=== PATIENT | female | born 1950 | race Caucasian/White ===

== ENCOUNTER → 2016-06-13 | Outpatient (CLI) | payer MEDICARE ==
[~2016-06-13] MED LIST: OMEP40CA2 PO; SERT-141 PO; TRAM50TA2 PO
--- NOTE | 2016-06-13 10:42 | REPMRS ---
Patient History The patient states she has not had a clinical breast exam in over a year. Patient has history of cancer in the left breast at age 59 and is nulliparous. Family history of breast cancer in paternal grandmother at age 50 or over. Malignant localization of breast nodule of the left breast, March 02, 2010. Malignant stereotactic core biopsy of the left breast, February 01, 2010. Taking tamoxifen for 3 years. Digital Mammo Screening Bilat: June 13, 2016 - Exam #: [id number] Bilateral CC and MLO view(s) were taken. Technologist: Patricia Green, Technologist Prior study comparison: September 16, 2014, bilateral digital mammo screening bilat performed at [facility]. July 25, 2013, right breast digital mammo screening bilat performed at [facility]. FINDINGS: There are scattered fibroglandular densities. There has been no change in the appearance of the right breast parenchyma in the interval since the prior examination. No mass, architectural distortion, or microcalcific cluster has developed. No suspicious finding. ASSESSMENT: BI-RADS/ACR category 2 mammogram. Benign finding(s). Recommendation Routine screening mammogram in 1 year. This mammogram was interpreted with the aid of an FDA-approved computer-aided dectection system. Electronically Signed By: Nicolas Dwyer MD 06/13/16 1234
== END ==
LOC: M RAD 07:12
PROVIDERS: ATTEND Physician Assistant
DX: Z12.31 Encounter for screening mammogram for malignant neoplasm of breast (principal); Z92.89 Personal history of other medical treatment; Z85.3 Personal history of malignant neoplasm of breast; Z79.810 Long term (current) use of selective estrogen receptor modulators (SERMs)

== ENCOUNTER → 2016-06-13 | Outpatient (CLI) | payer MEDICARE ==
[2016-06-13 08:50] LABS: ALBUMIN/GLOBULIN RATIO 1.11 (1.00-1.93); ALKALINE PHOSPHATASE 123 U/L (45-117); ALT/SGPT 26 U/L (12-78); ANION GAP 12 MEQ/L (8-16); AST/SGOT 16 U/L (15-37); BILIRUBIN,TOTAL 0.3 MG/DL (0.2-1.0); BLOOD UREA NITROGEN 21 MG/DL (7-18); CALCIUM LEVEL 9.6 MG/DL (8.8-10.2); CARBON DIOXIDE LEVEL 26 MEQ/L (21-32); CHLORIDE LEVEL 103 MEQ/L (98-107); CREATININE FOR GFR 0.87 MG/DL (0.55-1.02); GLOMERULAR FILTRATION RATE > 60.0 (>45); GLUCOSE, FASTING 92 MG/DL (80-110); POTASSIUM SERUM 3.8 MEQ/L (3.5-5.1); SODIUM LEVEL 141 MEQ/L (136-145); TOTAL PROTEIN 7.6 GM/DL (6.4-8.2)
== END ==
LOC: M LAB 07:18
PROVIDERS: ATTEND Family Medicine
DX: Z12.31 Encounter for screening mammogram for malignant neoplasm of breast (principal); E11.65 Type 2 diabetes mellitus with hyperglycemia; Z92.89 Personal history of other medical treatment; Z85.3 Personal history of malignant neoplasm of breast
CPT/HCPCS: 36415; 80053; 82043; 83036; G0202

== ENCOUNTER → 2016-08-28 | Outpatient (CLI) | payer MEDICARE ==
[~2016-08-28] MED LIST changes: -SERT-141 PO; +SERT50TA PO
[2016-08-28 14:40] LABS: BASO # 0.1 K/mm3 (0.0-0.2); BASO % 0.5 % (0.0-1.0); EOS # 0.5 K/mm3 (0.0-0.50); EOS % 3.3 % (0.0-3.0); LARGE UNSTAINED CELL # 0.2 K/mm3 (0.0-0.4); LARGE UNSTAINED CELL % 1.2 % (0.0-4.0); LYMPH % 20.1 % (24.0-44.0); MEAN CORPUSCULAR HEMOGLOBIN 29.2 pg (27.0-33.0); MEAN CORPUSCULAR HGB CONC 33.7 g/dl (32.0-36.5); MEAN CORPUSCULAR VOLUME 86.6 fl (80.0-96.0); MONO # 0.6 K/mm3 (0.0-0.8); MONO % 4.4 % (0.0-5.0); NEUTROPHILS # 10.1 K/mm3 (1.8-7.7); NEUTROPHILS % 70.5 % (36.0-66.0); PLATELET COUNT, AUTOMATED 295 k/mm3 (150-450); RED CELL DISTRIBUTION WIDTH 13.8 % (11.5-14.5); WHITE BLOOD COUNT 14.2 K/mm3 (4.0-10.0)
--- NOTE | 2016-08-28 14:45 | REP ---
Soft-tissue ultrasound right lower extremity. History: Round nodular mobile lump in the medial portion of the right lower extremity. Nontender. Findings: Scanning through the palpable area located in the medial distal thigh shows that this corresponds with a dilated superficial vein. This displays relatively stagnant flow. The vessel does compress with manual compression. Impression: The area in the medial thigh corresponds to a superficial venous varicosity which is patent but showing slow Doppler flow. Signed by Suresh Dwyer MD 08/28/2016 03:18 P
[2016-08-28 15:02] LABS: ALBUMIN 3.8 GM/DL (3.2-5.2); ALBUMIN/GLOBULIN RATIO 1.06 (1.00-1.93); ALKALINE PHOSPHATASE 119 U/L (45-117); ALT/SGPT 34 U/L (12-78); ANION GAP 9 MEQ/L (8-16); AST/SGOT 16 U/L (15-37); BILIRUBIN,TOTAL 0.4 MG/DL (0.2-1.0); BLOOD UREA NITROGEN 24 MG/DL (7-18); CARBON DIOXIDE LEVEL 28 MEQ/L (21-32); CHLORIDE LEVEL 104 MEQ/L (98-107); CHOLESTEROL LEVEL 148 MG/DL (<200); CREATININE FOR GFR 0.97 MG/DL (0.55-1.02); GLOMERULAR FILTRATION RATE > 60.0 (>45); GLUCOSE, FASTING 109 MG/DL (80-110); POTASSIUM SERUM 4.2 MEQ/L (3.5-5.1); SODIUM LEVEL 141 MEQ/L (136-145); TOTAL PROTEIN 7.4 GM/DL (6.4-8.2); TRIGLYCERIDES LEVEL 287 MG/DL (<150)
== END ==
LOC: M RAD 13:29
PROVIDERS: ATTEND Family Medicine
DX: D49.2 Neoplasm of unspecified behavior of bone, soft tissue, and skin (principal); E11.65 Type 2 diabetes mellitus with hyperglycemia

== ENCOUNTER → 2016-10-13 | Outpatient (REF) | payer MEDICARE | LOC: M LAB REF 15:45 | PROVIDERS: ATTEND Family Medicine | DX: L57.0 Actinic keratosis (principal) ==

== ENCOUNTER → 2016-11-27 | Outpatient (CLI) | payer MEDICARE ==
[2016-11-27 16:50] LABS: ALBUMIN 3.8 GM/DL (3.2-5.2); ALBUMIN/GLOBULIN RATIO 1.03 (1.00-1.93); ALKALINE PHOSPHATASE 137 U/L (45-117); ALT/SGPT 30 U/L (12-78); ANION GAP 10 MEQ/L (8-16); AST/SGOT 19 U/L (15-37); BILIRUBIN,TOTAL 0.3 MG/DL (0.2-1.0); BLOOD UREA NITROGEN 20 MG/DL (7-18); CALCIUM LEVEL 9.1 MG/DL (8.8-10.2); CARBON DIOXIDE LEVEL 25 MEQ/L (21-32); CHLORIDE LEVEL 108 MEQ/L (98-107); GLOMERULAR FILTRATION RATE > 60.0 (>45); GLUCOSE, FASTING 104 MG/DL (80-110); POTASSIUM SERUM 4.9 MEQ/L (3.5-5.1); SODIUM LEVEL 143 MEQ/L (136-145); TOTAL PROTEIN 7.5 GM/DL (6.4-8.2)
--- NOTE | 2016-11-27 16:53 | REP ---
Left shoulder series: Three views. History: 1-month history of left shoulder pain. Findings: There are surgical clips projecting in the left axillary soft tissues. There is subcortical cyst formation in the humeral head. No erosive changes seen. Glenohumeral and acromioclavicular joints are normally aligned. There is minimal osteoarthritic spurring at the AC joint. Impression: Mild degenerative changes. Left axillary surgical clips. Otherwise negative. Signed by Suresh Dwyer MD 11/27/2016 05:01 P
== END ==
LOC: M LAB 15:35
PROVIDERS: ATTEND Physician Assistant Medical
DX: M25.512 Pain in left shoulder (principal); I10 Essential (primary) hypertension; E11.65 Type 2 diabetes mellitus with hyperglycemia

== ENCOUNTER → 2016-12-05 | Outpatient (CLI) | payer MEDICARE ==
--- NOTE | 2016-12-07 12:24 | DEXA ---
AP SPINE L1 - L4 1.042 -1.2 0.4 LT FEMUR TOTAL 0.859 -1.2 0.0 RT FEMUR TOTAL 0.835 -1.4 -0.2 TOTAL BODY TOTAL OTHER DUAL FEMUR FRAX* ASSESSMENT Risk factors: Not performed. 10 year probability of fracture Major osteoporotic fracture % Hip fracture % COMMENTS: There is low bone density of the spine and hips. The density of the spine has increased 6.2% since 01/05/2010. The density of the left hip has increased 6.4% since 01/05/2010. The density of the right hip has increased 4.2% since 01/05/2010. The increased density of the spine does represent a significant change. The increased density of the left hip does represent a significant change. The increased density of the right hip does represent a significant change. FOLLOW-UP: Recommendation for the next bone density exam: 2 years. WALKER
== END ==
LOC: M WHC 12:51
PROVIDERS: ATTEND Physician Assistant Medical
DX: M25.512 Pain in left shoulder (principal); Z78.0 Asymptomatic menopausal state

== ENCOUNTER 2017-12-13 14:44 | Emergency (ER) | payer MEDICARE ==
[2017-12-13 15:14] LABS: BASO # 0.1 10^3/uL (0.0-0.2); BASO % 0.3 % (0.0-1.0); EOS # 0.4 10^3/uL (0.0-0.50); EOS % 2.9 % (0.0-3.0); HEMATOCRIT 42.8 % (36.0-47.0); IMMATURE GRANULOCYTE % 0.5 % (0-3.0); LYMPH # 3.5 10^3/uL (1.5-4.5); LYMPH % 23.6 % (24.0-44.0); MEAN CORPUSCULAR HEMOGLOBIN 27.6 pg (27.0-33.0); MEAN CORPUSCULAR HGB CONC 32.7 g/dl (32.0-36.5); MEAN CORPUSCULAR VOLUME 84.3 fl (80.0-96.0); MONO % 6.6 % (0.0-5.0); NEUTROPHILS # 9.9 10^3/uL (1.8-7.7); NEUTROPHILS % 66.1 % (36.0-66.0); PLATELET COUNT, AUTOMATED 312 10^3/uL (150-450); RED BLOOD COUNT 5.08 10^6/uL (4.00-5.40); RED CELL DISTRIBUTION WIDTH 14.7 % (11.5-14.5)
[2017-12-13] MEDS: NS 1,000 ML IV (15:23)
[2017-12-13 15:28] LABS: INR 0.94; PROTHROMBIN TIME 12.7 SECONDS (12.1-14.4)
[2017-12-13] MEDS ORDERED: NITROGLYCERIN 0.4 MG SUBL TABLET SL (15:30)
[2017-12-13 15:36] LABS: ALBUMIN 3.7 GM/DL (3.2-5.2); ALBUMIN/GLOBULIN RATIO 0.95 (1.00-1.93); ALKALINE PHOSPHATASE 143 U/L (45-117); ALT/SGPT 28 U/L (12-78); ANION GAP 12 MEQ/L (8-16); AST/SGOT 13 U/L (7-37); BILIRUBIN,DIRECT < 0.1 MG/DL (0.0-0.2); BILIRUBIN,TOTAL 0.4 MG/DL (0.2-1.0); BLOOD UREA NITROGEN 17 MG/DL (7-18); CARBON DIOXIDE LEVEL 24 MEQ/L (21-32); CHLORIDE LEVEL 105 MEQ/L (98-107); CPK CREATINE PHOSPHOKINASE 205 U/L (26-192); CREATININE FOR GFR 0.87 MG/DL (0.55-1.30); GLOMERULAR FILTRATION RATE > 60.0 (>45); GLUCOSE, FASTING 107 MG/DL (70-100); LIPASE 197 U/L (73-393); POTASSIUM SERUM 3.5 MEQ/L (3.5-5.1); SODIUM LEVEL 141 MEQ/L (136-145); TOTAL PROTEIN 7.6 GM/DL (6.4-8.2); TROPONIN I < 0.02 NG/ML (< 0.10)
[2017-12-13 15:37] LABS: CK-MB VALUE MASS 3.4 NG/ML (<3.6); MB/CK RELATIVE INDEX 1.65 (< OR =4)
[2017-12-13 19:52] LABS: CK-MB VALUE MASS 2.5 NG/ML (<3.6); CPK CREATINE PHOSPHOKINASE 211 U/L (26-192); MB/CK RELATIVE INDEX 1.18 (< OR =4); TROPONIN I < 0.02 NG/ML (< 0.10)
== END 2017-12-13 20:20 | disposition home or self-care (01) ==
LOC: M ED 14:44
DX: R07.89 Other chest pain (principal); E11.9 Type 2 diabetes mellitus without complications; J45.909 Unspecified asthma, uncomplicated; I10 Essential (primary) hypertension; E78.5 Hyperlipidemia, unspecified; K21.9 Gastro-esophageal reflux disease without esophagitis; G89.29 Other chronic pain; I25.10 Atherosclerotic heart disease of native coronary artery without angina pectoris; Z82.49 Family history of ischemic heart disease and other diseases of the circulatory system; Z79.899 Other long term (current) drug therapy; Z79.82 Long term (current) use of aspirin; Z79.84 Long term (current) use of oral hypoglycemic drugs; Z88.8 Allergy status to other drugs, medicaments and biological substances; F17.210 Nicotine dependence, cigarettes, uncomplicated
CPT/HCPCS: 71045

== ENCOUNTER → 2018-01-22 | Outpatient (CLI) | payer MEDICARE | LOC: M RAD 13:21 | DX: Z12.2 Encounter for screening for malignant neoplasm of respiratory organs (principal); F17.218 Nicotine dependence, cigarettes, with other nicotine-induced disorders | CPT/HCPCS: G0297 ==

== ENCOUNTER 2018-02-04 09:48 | Day surgery (SDC) | payer MEDICARE ==
[~2018-02-04 09:48] MED LIST changes: +MIDAZOLAM INJ 2 MG/2 ML VIAL (J2250) As Ordered; -OMEP40CA2 PO; -SERT50TA PO; -TRAM50TA2 PO; +fentaNYL 100 MCG/2 ML INJECTION (J3010) As Ordered
[2018-02-04 10:46] LABS: BEDSIDE GLUCOSE 137 MG/DL (80-115)
[2018-02-04] MEDS: LIDOCAINE 3.5 % 1ML OPHTH TOPICAL GEL OU (10:58)
[2018-02-04] MEDS: POVIDONE-IODINE 5% OPHTH PREP SOL 30ML As Ordered (12:05)
[2018-02-04] MEDS: LIDOCAINE 2% W/EPIN INJ 20ML **PRES FREE As Ordered (12:05)
[2018-02-04] MEDS ORDERED: fentaNYL 100 MCG/2 ML INJECTION (J3010) As Ordered (12:23)
[2018-02-04] MEDS ORDERED: PROPOFOL 200 MG/20 ML VIAL As Ordered (12:27)
[2018-02-04] MEDS: ERYTHROMYCIN OPHTH OINT As Ordered (12:51)
[2018-02-04] MEDS: TETRACAINE 0.5% OPHTH SOLN 4ML As Ordered (12:53)
== END 2018-02-04 13:40 | disposition home or self-care (01) ==
LOC: M SDC 09:48
DX: H02.834 Dermatochalasis of left upper eyelid (principal); H02.831 Dermatochalasis of right upper eyelid; H01.001 Unspecified blepharitis right upper eyelid; H01.004 Unspecified blepharitis left upper eyelid; I50.32 Chronic diastolic (congestive) heart failure; I11.0 Hypertensive heart disease with heart failure; E78.00 Pure hypercholesterolemia, unspecified; E11.9 Type 2 diabetes mellitus without complications; M12.9 Arthropathy, unspecified; L98.8 Other specified disorders of the skin and subcutaneous tissue; F32.9 Major depressive disorder, single episode, unspecified; G43.909 Migraine, unspecified, not intractable, without status migrainosus; G40.909 Epilepsy, unspecified, not intractable, without status epilepticus; J44.9 Chronic obstructive pulmonary disease, unspecified; G47.33 Obstructive sleep apnea (adult) (pediatric); F17.210 Nicotine dependence, cigarettes, uncomplicated; R07.9 Chest pain, unspecified; E66.9 Obesity, unspecified; Z68.37 Body mass index [BMI] 37.0-37.9, adult; Z88.8 Allergy status to other drugs, medicaments and biological substances; Z91.09 Other allergy status, other than to drugs and biological substances; Z79.899 Other long term (current) drug therapy; Z79.82 Long term (current) use of aspirin; Z79.84 Long term (current) use of oral hypoglycemic drugs; Z90.710 Acquired absence of both cervix and uterus; Z85.3 Personal history of malignant neoplasm of breast; Z92.21 Personal history of antineoplastic chemotherapy; Z92.3 Personal history of irradiation
CPT/HCPCS: 15823

== ENCOUNTER → 2018-04-05 | Outpatient (CLI) | payer MEDICARE ==
[~2018-04-05] MED LIST changes: +ADVA115A INH; +ASPI1TAB PO; +ATOR1TAB21 PO; +CITRSOL8 PO; +COLA100C5 PO; +E-Z-GAS II EFFERVESCENT PACKET (SODIUM BICARB./CITRIC ACID/SIMETHICONE) As Ordered ONE; +E-Z-HD 98% w/w 340GM SUSP BTL As Ordered ONE; +E-Z-PAQUE 96% w/w SUSP 176GM BTL As Ordered ONE; +FURO40TA2 PO; +LOSA100T50 PO; +METF10004 PO; -MIDAZOLAM INJ 2 MG/2 ML VIAL (J2250) As Ordered; +NORC1TAB4 PO; +OMEP20CA3 PO; +OMEP40CA2 PO; +PROAAER10 INH; +SENO8.6T10 PO; +SERT50TA PO; +TRAM50TA2 PO; -fentaNYL 100 MCG/2 ML INJECTION (J3010) As Ordered
--- NOTE | 2018-04-05 17:13 | REP ---
Esophagram The procedure was performed under the direct supervision of Dr. Dwyer. The images were reviewed with Dr. Dwyer. A single view PA chest x-ray is submitted as a obstetrics gynecology physician film. The superior mediastinal structures are midline. The heart size is within normal limits. The lungs are clear. There are surgical clips noted in the left axilla and left chest. Liquid barium and gas producing granules were given in the erect position as well as liquid barium in the prone oblique positions in order to perform a double contrast esophagram examination. The oral and pharyngeal stages of deglutition are unremarkable. There are esophageal transport there are mild tertiary waves. There is no esophagitis, stricture, mucosal ring or hiatal hernia. Gastroesophageal reflux is not demonstrated on this examination. Impression: There are mild tertiary waves demonstrated, otherwise, unremarkable double contrast esophagram examination. 0.8 minutes of fluoro time was utilized for this procedure. Reviewed by PALAK Angeles 04/05/2018 04:45 P Electronically Signed by Suresh Dwyer MD 04/05/2018 05:04 P
== END ==
LOC: M RAD 09:22
PROVIDERS: ATTEND Nurse Practitioner Adult Health
DX: K21.9 Gastro-esophageal reflux disease without esophagitis (principal)

== ENCOUNTER → 2018-06-28 | Outpatient (CLI) | payer MEDICARE ==
[~2018-06-28] MED LIST changes: -E-Z-GAS II EFFERVESCENT PACKET (SODIUM BICARB./CITRIC ACID/SIMETHICONE) As Ordered ONE; -E-Z-HD 98% w/w 340GM SUSP BTL As Ordered ONE; -E-Z-PAQUE 96% w/w SUSP 176GM BTL As Ordered ONE
--- NOTE | 2018-06-29 07:35 | REP ---
DIAGNOSTIC DIGITAL RIGHT MAMMOGRAM: 06/28/2018. CLINICAL HISTORY: Right breast pain in the 3-4-o'clock region and also another area of pain at 12-o'clock position. COMPARISON: Breast ultrasound in these regions today, right mammogram 06/13/2016, 09/16/2014. FINDINGS: There are heterogeneously dense fibroglandular elements scattered in the breast parenchyma in a pattern and distribution unchanged. Large coarse calcifications are present, of no clinical significance. Scattered lymph nodes are seen in the axilla. There is a benign intramammary node in the upper outer quadrant of the right breast. No dominant mass, architectural distortion, skin thickening, suspicious cluster of microcalcification or other secondary sign of malignancy. The 3D tomosynthesis images show no additional findings. Right breast ultrasound in the two areas of her breast pain described today showed no sonographic abnormalities at the 3-4 o'clock region but with a dense echogenic tissue band at the noon position and a 3 x 2 x 3 mm cyst with adjacent dilated ducts noted. No filling defects in those ducts. Also at the noon position about 2.7 cm from the nipple is a 5 x 5 x 4 mm hypoechoic lesion but there is mild shadowing, no through transmission. There is no color flow within and the internal echoes are fairly hypoechoic IMPRESSION: BIRADS 4: BI-RADS/ACR category 4 mammogram. Suspicious Abnormality - biopsy should be considered. Recommend ultrasound-guided needle biopsy of a 5 x 5 x 4 mm hypoechoic nodule at the noon position right breast about 2.7 cm from nipple. Does not have characteristics that would clearly define a fibroadenoma or other readily definable sonographic features. Biopsy suggested. This mammogram was interpreted with the aid of an FDA-approved computer-aided detection system. A. Negative x-ray reports should not delay biopsy if a dominant or clinically suspicious mass is present. B. Four to eight percent of cancers are not identified by x-ray. C. Adenosis and dense breasts may obscure an underlying neoplasm. The patient states that she or he has not had a clinical breast exam in over a year. The patient letter being requested is M4, dense. Electronically Signed by Dread Mendoza MD 06/29/2018 12:04 P
--- NOTE | 2018-06-29 07:35 | REP ---
RIGHT BREAST ULTRASOUND: 06/28/2018. Clinical history: Right breast pain in a patient with prior left mastectomy. Comparison: Diagnostic right mammogram today Findings: Scanning of the right breast in the region of her pain at 3-4 o'clock area. At the 3-4 o'clock region there was no sonographic abnormality visualized. No cyst or solid mass, architectural distortion or dilated duct. At the noon position there was an echogenic dense band of tissue seen with a 3 x 3 x 2 mm cyst adjacent to a dilated duct. No internal echoes or debris. Also at 12 o'clock, about 2.7 cm from nipple there was a 5 x 5 x 4 mm hypoechoic area sharply circumscribed with internal echoes and some shadowing. This may reflect oil cysts or other similar finding. There was no color flow within it. Impression: 1. BIRADS ACR category 4 suspicious, suspicious finding with 5 x 5 x 4 mm hypoechoic area at the noon position left breast away for her area of pain. This has internal echoes, no color flow, but does not show through transmission and has some shadowing. 2. At the 3-4 o'clock position in the area of her pain there were no sonographic findings. 3. A 3 x 3 x 2 mm cyst in adjacent dilated duct seen at the noon position without internal echoes or filling defects. 4. Please see mammogram report this date for final assessment and recommendation. Electronically Signed by Dread Mendoza MD 06/29/2018 12:03 P
== END ==
LOC: M RAD 11:49
PROVIDERS: ATTEND Nurse Practitioner Adult Health
DX: N64.4 Mastodynia (principal); R92.1 Mammographic calcification found on diagnostic imaging of breast; N63.10 Unspecified lump in the right breast, unspecified quadrant
CPT/HCPCS: 76642; 77065; G0279

== ENCOUNTER → 2018-07-10 | Outpatient (CLI) | payer MEDICARE ==
[~2018-07-10] MED LIST changes: -ASPI1TAB PO; +ASPI81TA26 PO; +LIDOCAINE 1% MDV 20ML VIAL As Ordered ONE; -NORC1TAB4 PO; +NORC1TAB7 PO; +SERT-141 PO; -SERT50TA PO
--- NOTE | 2018-07-10 14:05 | REP ---
POST BIOPSY MAMMOGRAM RIGHT BREAST: Post biopsy mammogram right breast performed in the ML and CC projections, status post ultrasound-guided biopsy of a subcentimeter nodule in the region of 12-o'clock position. A metallic clip is seen at the site of the biopsy in the region of 12-o'clock position anteriorly. Right breast parenchyma appears unchanged. Electronically Signed by Jesse Macias MD 07/10/2018 04:55 P
--- NOTE | 2018-07-10 16:59 | REP ---
ULTRASOUND GUIDED RIGHT BREAST BIOPSY The procedure was performed under the direct supervision of Dr. Macias The patient has a history of 5 x 5 x 4 mm hypoechoic area in the position of the right breast seen on a previous ultrasound dated 06/28/2018. The risks and benefits of the procedure were explained to the patient and informed consent was obtained. The right breast nodule was localized using ultrasound guidance. The skin was prepped and draped in a sterile fashion. 1% Xylocaine was used as a local anesthetic. Using ultrasound guidance a 13-gauge suction assisted Mammotome needle was inserted and five core biopsy samples were obtained. A marker clip was placed at the biopsy site. The patient tolerated the procedure well and there were no immediate complications. After the appropriate amount of monitored convalescence the patient was discharged from the department. Reviewed by PALAK Angeles 07/10/2018 03:40 P Electronically Signed by Jesse Macias MD 07/10/2018 04:50 P
== END ==
LOC: M RADPRO 11:34
PROVIDERS: ATTEND Nurse Practitioner Adult Health
DX: N60.11 Diffuse cystic mastopathy of right breast (principal); N63.11 Unspecified lump in the right breast, upper outer quadrant; N63.12 Unspecified lump in the right breast, upper inner quadrant; N64.4 Mastodynia; I11.0 Hypertensive heart disease with heart failure; J44.9 Chronic obstructive pulmonary disease, unspecified; F17.210 Nicotine dependence, cigarettes, uncomplicated; E11.9 Type 2 diabetes mellitus without complications; Z79.84 Long term (current) use of oral hypoglycemic drugs; Z79.899 Other long term (current) drug therapy

== ENCOUNTER 2018-12-23 15:42 | Emergency (ER) | payer MEDICARE ==
[~2018-12-23] VITALS: Ht 160 cm; Wt 94.5 kg
[~2018-12-23 15:42] MED LIST changes: -LIDOCAINE 1% MDV 20ML VIAL As Ordered ONE; +OMEP1CAP73 PO; -OMEP20CA3 PO; -OMEP40CA2 PO; +OMEP40CA97 PO
[2018-12-23] MEDS ORDERED: EZET10TA21 PO (16:07)
[2018-12-23 16:30] LABS: BASO # 0.1 10^3/uL (0.0-0.2); BASO % 0.5 % (0.0-1.0); EOS # 0.4 10^3/uL (0.0-0.5); EOS % 3.2 % (0.0-3.0); HEMATOCRIT 40.7 % (36.0-47.0); HEMOGLOBIN 13.4 g/dl (12.0-15.5); LYMPH # 3.1 10^3/uL (1.5-5.0); LYMPH % 23.8 % (24.0-44.0); MEAN CORPUSCULAR HEMOGLOBIN 27.6 pg (27.0-33.0); MEAN CORPUSCULAR HGB CONC 32.9 g/dl (32.0-36.5); MEAN CORPUSCULAR VOLUME 83.7 fl (80.0-96.0); MONO # 0.8 10^3/uL (0.0-0.8); MONO % 6.1 % (0.0-5.0); NEUTROPHILS # 8.5 10^3/uL (1.5-8.5); NEUTROPHILS % 65.8 % (36.0-66.0); PLATELET COUNT, AUTOMATED 312 10^3/uL (150-450); RED BLOOD COUNT 4.86 10^6/uL (4.00-5.40); WHITE BLOOD COUNT 12.9 10^3/uL (4.0-10.0)
[2018-12-23 16:52] LABS: ALBUMIN 3.8 GM/DL (3.2-5.2); ALT/SGPT 30 U/L (12-78); BILIRUBIN,DIRECT < 0.1 MG/DL (0.0-0.2); BILIRUBIN,TOTAL 0.2 MG/DL (0.2-1.0); CK-MB VALUE MASS 2.5 NG/ML (<3.6); CPK CREATINE PHOSPHOKINASE 166 U/L (26-192); LIPASE 160 U/L (73-393); MB/CK RELATIVE INDEX 1.51 (< OR =4); TOTAL PROTEIN 7.4 GM/DL (6.4-8.2); TROPONIN I < 0.02 NG/ML (< 0.10)
--- NOTE | 2018-12-23 17:23 | REP ---
CHEST: Two views. There is no evidence of acute infiltrate. No pleural effusion is seen. The heart is normal in size. The mediastinal silhouette is unremarkable. The visualized osseous structures are intact. There are mild degenerative changes of the spine. IMPRESSION: No acute pulmonary disease. Electronically Signed by Jesse Macias MD 12/25/2018 09:55 A
[2018-12-23] MEDS ORDERED: IPRATROPIUM 0.5MG/ALBUTEROL 2.5MG INH SOL UD 3ML (DUONEB)(J7620) NEB ONE (17:30)
[2018-12-23 17:43] LABS: FREE T4 0.78 NG/DL (0.76-1.46)
[2018-12-23 17:44] LABS: MONO SCRN NEGATIVE (NEGATIVE)
[2018-12-23] MEDS ORDERED: BENZ200C70 PO (17:51)
[2018-12-23] MEDS ORDERED: AUGM875T28 PO (17:51)
[2018-12-23 18:04] VITALS: BP 149/67
--- NOTE | 2018-12-24 19:18 | ECGEPIP ---
[facility] - ED Test Date: 2018-12-23 Pat Name: PRASHANT RINCON Department: Room: - Gender: Female [employer]: BALJINDER : 1950 Requested By: BENJI ROSS PA-C Order Number: [id number] Reading MD: Elmer Marquez Measurements Intervals [facility] Rate: 85 P: 60 FL: 152 QRS: 34 QRSD: 85 T: 16 QT: 362 QTc: 432 Interpretive Statements SINUS RHYTHM WITH SINUS ARRHYTHMIA NSTTW ABNORMALITIES SIMILAR TO 12/13/17 Electronically Signed on 12-24-2018 19:18:26 EDT by Elmer Marquez
== END 2018-12-23 18:16 | disposition home or self-care (01) ==
LOC: M ED 15:42
DX: J44.0 Chronic obstructive pulmonary disease with (acute) lower respiratory infection (principal); R07.89 Other chest pain; I10 Essential (primary) hypertension; E78.5 Hyperlipidemia, unspecified; G47.30 Sleep apnea, unspecified; K21.9 Gastro-esophageal reflux disease without esophagitis; M54.89 Other dorsalgia; G43.909 Migraine, unspecified, not intractable, without status migrainosus; Z88.8 Allergy status to other drugs, medicaments and biological substances; Z79.82 Long term (current) use of aspirin; Z79.899 Other long term (current) drug therapy

== ENCOUNTER → 2019-06-06 | Outpatient (CLI) | payer MEDICARE ==
[~2019-06-06] MED LIST changes: +AUGM875T28 PO; +BENZ200C70 PO; +EZET10TA21 PO
--- NOTE | 2019-06-06 13:47 | REP ---
Clinical: Lung screening. History smoking. Comparison: 01/22/2018 Technique: Axial low-dose noncontrast images from the thoracic inlet to the upper abdomen using lung screening technique. Findings: The lung white are well-aerated. No consolidation, significant nodule or mass lesion is appreciated. Few small scattered calcified granulomata again noted. No pleural effusion/reaction or pneumothorax. Tracheobronchial tree is patent. Mediastinum demonstrates mild atherosclerotic changes of the coronary arteries without cardiomegaly. Impression: Lung-RADS category I. No significant nodule or suspicious abnormality. Management recommendations include annual low-dose surveillance. Electronically Signed by Chinedu Mondragon MD 06/06/2019 01:39 P
== END ==
LOC: M RAD 13:06
PROVIDERS: ATTEND Internal Medicine Pulmonary Disease
DX: Z87.891 Personal history of nicotine dependence (principal)

== ENCOUNTER 2019-07-07 22:20 | Emergency (ER) | payer MEDICARE ==
[~2019-07-07] VITALS: Ht 157.5 cm; Wt 96.8 kg
[2019-07-07] MEDS ORDERED: MECLIZINE 25 MG TABLET PO ONE (23:00)
[2019-07-07] MEDS ORDERED: NS 1,000 ML IV ONE (23:00)
[2019-07-07] MEDS ORDERED: ONDANSETRON 4MG/2ML VIAL (J2405) IV ONE (23:00)
[2019-07-07 23:42] LABS: BASO # 0.1 10^3/uL (0.0-0.2); BASO % 0.5 % (0.0-1.0); EOS # 0.4 10^3/uL (0.0-0.5); EOS % 2.9 % (0.0-3.0); HEMATOCRIT 38.9 % (36.0-47.0); HEMOGLOBIN 12.4 g/dl (12.0-15.5); LYMPH # 2.8 10^3/uL (1.5-5.0); MEAN CORPUSCULAR HEMOGLOBIN 26.6 pg (27.0-33.0); MEAN CORPUSCULAR HGB CONC 31.9 g/dl (32.0-36.5); MEAN CORPUSCULAR VOLUME 83.5 fl (80.0-96.0); MONO # 0.7 10^3/uL (0.0-0.8); NEUTROPHILS # 8.1 10^3/uL (1.5-8.5); NEUTROPHILS % 66.9 % (36.0-66.0); PLATELET COUNT, AUTOMATED 300 10^3/uL (150-450); RED BLOOD COUNT 4.66 10^6/uL (4.00-5.40); WHITE BLOOD COUNT 12.1 10^3/uL (4.0-10.0)
[2019-07-08 00:10] LABS: ALBUMIN 3.6 GM/DL (3.2-5.2); ALT/SGPT 31 U/L (12-78); BILIRUBIN,DIRECT < 0.1 MG/DL (0.0-0.2); BILIRUBIN,TOTAL 0.3 MG/DL (0.2-1.0); CK-MB VALUE MASS 3.7 NG/ML (<3.6); CPK CREATINE PHOSPHOKINASE 283 U/L (26-192); LIPASE 236 U/L (73-393); MB/CK RELATIVE INDEX 1.31 (< OR =4); TOTAL PROTEIN 7.4 GM/DL (6.4-8.2); TROPONIN I < 0.02 NG/ML (< 0.10)
[2019-07-08] MEDS ORDERED: KETOROLAC 30 MG/ML VIAL (J1885) IV ONE (00:30)
[2019-07-08 01:16] VITALS: BP 157/69
[2019-07-08] MEDS ORDERED: ONDA4TAB6 PO (01:29)
[2019-07-08] MEDS ORDERED: MECL1TAB31 PO (01:29)
== END 2019-07-08 01:49 | disposition home or self-care (01) ==
LOC: M ED 22:20
DX: K52.9 Noninfective gastroenteritis and colitis, unspecified (principal); E11.9 Type 2 diabetes mellitus without complications; F17.200 Nicotine dependence, unspecified, uncomplicated; J30.2 Other seasonal allergic rhinitis; Z79.82 Long term (current) use of aspirin; Z79.84 Long term (current) use of oral hypoglycemic drugs; Z79.899 Other long term (current) drug therapy; Z88.5 Allergy status to narcotic agent
CPT/HCPCS: 80047; 80076; 82550; 82553; 83690; 84484; 85025; 93041; 96361; 96374; 96375; 99285; J1885; J2405

== ENCOUNTER 2019-12-01 21:20 | Emergency (ER) | payer MEDICARE ==
[~2019-12-01 21:20] MED LIST changes: +FLECAINIDE 50MG TABLET As Ordered ONE; +MECL1TAB31 PO; +METOPROLOL TART 25 MG TABLET As Ordered ONE; +METOPROLOL TART 25 MG TABLET ONE; +ONDA4TAB6 PO
[2020-01-14 16:17] LABS: BASO % 0.3 % (0.0-1.0); EOS # 0.2 10^3/uL (0.0-0.5); EOS % 1.1 % (0.0-3.0); HEMATOCRIT 40.1 % (36.0-47.0); HEMOGLOBIN 12.9 g/dl (12.0-15.5); LYMPH # 1.7 10^3/uL (1.5-5.0); MEAN CORPUSCULAR HGB CONC 32.2 g/dl (32.0-36.5); MEAN CORPUSCULAR VOLUME 83.9 fl (80.0-96.0); MONO # 0.6 10^3/uL (0.0-0.8); MONO % 4.3 % (0.0-5.0); NEUTROPHILS # 10.6 10^3/uL (1.5-8.5); NEUTROPHILS % 80.7 % (36.0-66.0); PLATELET COUNT, AUTOMATED 267 10^3/uL (150-450); RED BLOOD COUNT 4.78 10^6/uL (4.00-5.40); WHITE BLOOD COUNT 13.1 10^3/uL (4.0-10.0)
[2020-02-22 16:16] LABS: BLOOD UREA NITROGEN 16 MG/DL (7-18); CALCIUM LEVEL 8.7 MG/DL (8.8-10.2); CARBON DIOXIDE LEVEL 25 MEQ/L (21-32); CHLORIDE LEVEL 106 MEQ/L (98-107); CREATININE FOR GFR 0.77 MG/DL (0.55-1.30); FREE T4 0.83 NG/DL (0.76-1.46); GLOMERULAR FILTRATION RATE > 60.0 (>45); GLUCOSE, FASTING 131 MG/DL (70-100); POTASSIUM SERUM 3.9 MEQ/L (3.5-5.1); SODIUM LEVEL 140 MEQ/L (136-145)
== END 2019-12-01 22:25 | disposition home or self-care (01) ==
LOC: M ED 21:20
DX: I48.0 Paroxysmal atrial fibrillation (principal); E11.9 Type 2 diabetes mellitus without complications; I10 Essential (primary) hypertension; I51.9 Heart disease, unspecified; K21.9 Gastro-esophageal reflux disease without esophagitis; F17.200 Nicotine dependence, unspecified, uncomplicated; Z79.84 Long term (current) use of oral hypoglycemic drugs; Z79.82 Long term (current) use of aspirin; Z79.899 Other long term (current) drug therapy; Z88.8 Allergy status to other drugs, medicaments and biological substances

== ENCOUNTER 2019-12-08 03:17 | Emergency (ER) | payer MEDICARE ==
[~2019-12-08] VITALS: Ht 160 cm; Wt 94.5 kg
[~2019-12-08 03:17] MED LIST changes: -FLECAINIDE 50MG TABLET As Ordered ONE; -METOPROLOL TART 25 MG TABLET As Ordered ONE; -METOPROLOL TART 25 MG TABLET ONE
[2019-12-08 06:15] VITALS: BP 147/65
[2019-12-09] MEDS ORDERED: ONDA4TAB6 PO (20:22)
== END 2019-12-08 06:42 | disposition home or self-care (01) ==
LOC: M ED 03:17
DX: R42 Dizziness and giddiness (principal); I48.91 Unspecified atrial fibrillation; E11.9 Type 2 diabetes mellitus without complications; I10 Essential (primary) hypertension; E78.5 Hyperlipidemia, unspecified; J44.9 Chronic obstructive pulmonary disease, unspecified; K21.9 Gastro-esophageal reflux disease without esophagitis; F41.9 Anxiety disorder, unspecified; F17.200 Nicotine dependence, unspecified, uncomplicated; Z88.8 Allergy status to other drugs, medicaments and biological substances; J30.1 Allergic rhinitis due to pollen; Z79.899 Other long term (current) drug therapy; Z79.84 Long term (current) use of oral hypoglycemic drugs; Z79.82 Long term (current) use of aspirin; Z79.51 Long term (current) use of inhaled steroids

== ENCOUNTER 2019-12-09 10:55 | Emergency (ER) | payer MEDICARE ==
[~2019-12-09] VITALS: Ht 162.6 cm; Wt 94.5 kg
--- NOTE | 2019-12-09 12:06 | REPVR ---
PROCEDURE INFORMATION: Exam: XR Chest, 1 View Exam date and time: 12/09/2019 11:50 AM Age: 69 years old Clinical indication: Shortness of breath; Additional info: Chest pain TECHNIQUE: Imaging protocol: XR of the chest Views: Frontal portable sitting upright view of the chest. COMPARISON: CR Chest, 2 view PA, Lat 12/23/2018 4:25 PM FINDINGS: Tubes, catheters and devices: EKG leads are present overlying the chest. Lungs: Mild right basilar pulmonary subsegmental atelectasis. The lungs are otherwise clear bilaterally. The pulmonary vasculature is normal. Pleural space: No pleural effusion. No pneumothorax. Heart/Mediastinum: The heart is normal in size and contour. Mediastinum: Stable. Bones/joints: Stable. IMPRESSION: 1. Mild right basilar pulmonary subsegmental atelectasis. 2. Otherwise, no acute cardiopulmonary abnormality identified. Electronically signed by: Bandar Schuler On 12/09/2019 12:07:01 PM
--- NOTE | 2019-12-09 12:28 | REPVR ---
PROCEDURE INFORMATION: Exam: CT Head Without Contrast Exam date and time: 12/09/2019 12:05 PM Age: 69 years old Clinical indication: Injury or trauma; Fall; Initial encounter; Blunt trauma (contusions or hematomas); Additional info: Headahce and neck pain TECHNIQUE: Imaging protocol: Computed tomography of the head without contrast. Radiation optimization: All CT scans at this facility use at least one of these dose optimization techniques: automated exposure control; mA and/or kV adjustment per patient size (includes targeted exams where dose is matched to clinical indication); or iterative reconstruction. COMPARISON: CT Head without contrast 12/27/2014 10:53 PM FINDINGS: Brain: Normal. No hemorrhage. Unremarkable white matter. No mass effect. Ventricles: Normal. No ventriculomegaly. Bones/joints: Unremarkable. No acute fracture. Sinuses: Visualized sinuses are unremarkable. No fluid levels. Mastoid air cells: Visualized mastoid air cells are well aerated. Vasculature: Atherosclerotic calcifications are present involving the left carotid artery siphon. Soft tissues: Unremarkable. IMPRESSION: No acute intracranial injury. Electronically signed by: Bandar Schuler On 12/09/2019 12:29:11 PM
--- NOTE | 2019-12-09 12:32 | REPVR ---
PROCEDURE INFORMATION: Exam: CT Cervical Spine Without Contrast Exam date and time: 12/09/2019 12:05 PM Age: 69 years old Clinical indication: Injury or trauma; Fall; Initial encounter; Blunt trauma; Additional info: Headahce and neck pain TECHNIQUE: Imaging protocol: Computed tomography images of the cervical spine without contrast. Radiation optimization: All CT scans at this facility use at least one of these dose optimization techniques: automated exposure control; mA and/or kV adjustment per patient size (includes targeted exams where dose is matched to clinical indication); or iterative reconstruction. COMPARISON: No relevant prior studies available. FINDINGS: Vertebrae: Anterior cervical vertebral body marginal osteophytes from C3 through T2 C3 on C4 anterolisthesis measuring 2.9 mm in the supine position. Mild-moderate C6-C7 spondylosis. Discs/Spinal canal/Neural foramina: Mild left C2-C3 and right C3-C4 primary facet osteoarthritis. Moderate left C3-C4 primary facet osteoarthritis. Soft tissues: Unremarkable. Lungs: Lung apices are normal. IMPRESSION: 1. Degenerative changes as above. 2. No acute cervical spinal bony injury identified. Electronically signed by: Bandar Schuler On 12/09/2019 12:32:31 PM
[2019-12-09 12:48] LABS: BASO # 0.1 10^3/uL (0.0-0.2); BASO % 0.6 % (0.0-1.0); EOS # 0.2 10^3/uL (0.0-0.5); EOS % 1.7 % (0.0-3.0); HEMATOCRIT 43.3 % (36.0-47.0); HEMOGLOBIN 13.8 g/dl (12.0-15.5); LYMPH # 1.7 10^3/uL (1.5-5.0); LYMPH % 15.4 % (24.0-44.0); MEAN CORPUSCULAR HEMOGLOBIN 27.1 pg (27.0-33.0); MEAN CORPUSCULAR HGB CONC 31.9 g/dl (32.0-36.5); MEAN CORPUSCULAR VOLUME 85.1 fl (80.0-96.0); MONO # 0.6 10^3/uL (0.0-0.8); NEUTROPHILS # 8.4 10^3/uL (1.5-8.5); NEUTROPHILS % 76.2 % (36.0-66.0); PLATELET COUNT, AUTOMATED 178 10^3/uL (150-450); RED BLOOD COUNT 5.09 10^6/uL (4.00-5.40)
[2019-12-09 12:50] LABS: CK-MB VALUE MASS 1.2 NG/ML (<3.6); CPK CREATINE PHOSPHOKINASE 145 U/L (26-192); MB/CK RELATIVE INDEX 0.83 (< OR =4); TROPONIN I < 0.02 NG/ML (< 0.10)
[2019-12-09 14:05] LABS: ALBUMIN 3.5 GM/DL (3.2-5.2); ALT/SGPT 29 U/L (12-78); BILIRUBIN,DIRECT < 0.1 MG/DL (0.0-0.2); BILIRUBIN,TOTAL 0.3 MG/DL (0.2-1.0); BLOOD UREA NITROGEN 16 MG/DL (7-18); CALCIUM LEVEL 8.8 MG/DL (8.8-10.2); CARBON DIOXIDE LEVEL 25 MEQ/L (21-32); CHLORIDE LEVEL 109 MEQ/L (98-107); CK-MB VALUE MASS 1.1 NG/ML (<3.6); CPK CREATINE PHOSPHOKINASE 114 U/L (26-192); CREATININE FOR GFR 0.72 MG/DL (0.55-1.30); GLOMERULAR FILTRATION RATE > 60.0 (>45); GLUCOSE, FASTING 143 MG/DL (70-100); LIPASE 139 U/L (73-393); MB/CK RELATIVE INDEX 0.96 (< OR =4); POTASSIUM SERUM 4.1 MEQ/L (3.5-5.1); SODIUM LEVEL 142 MEQ/L (136-145); TOTAL PROTEIN 7.1 GM/DL (6.4-8.2); TROPONIN I < 0.02 NG/ML (< 0.10)
[2019-12-09 17:23] LABS: CK-MB VALUE MASS 1.3 NG/ML (<3.6); CPK CREATINE PHOSPHOKINASE 117 U/L (26-192); MB/CK RELATIVE INDEX 1.11 (< OR =4); TROPONIN I < 0.02 NG/ML (< 0.10)
--- NOTE | 2019-12-09 20:10 | REPVR ---
PROCEDURE INFORMATION: Exam: MR Head Without Contrast Exam date and time: 12/09/2019 6:59 PM Age: 69 years old Clinical indication: Dizziness; Additional info: Dizziness; 2nd ED visit TECHNIQUE: Imaging protocol: MR of the head without contrast. COMPARISON: CT Head without contrast 12/09/2019 11:58 AM FINDINGS: Brain: No acute infarct identified on the diffusion-weighted imaging. No parenchymal hemorrhage. No evidence of brain parenchymal edema or intracranial mass effect. A few patchy foci of increased signal intensity in the deep white matter and homero on the T2 weighted imaging most likely representing mild chronic small vessel ischemic change. No significant white matter disease for the patient's age. Ventricles: No ventriculomegaly. Bones/joints: Unremarkable. Sinuses: Trace ethmoid mucosal thickening. Mastoid air cells: Normal as visualized. No mastoid effusion. Orbits: Unremarkable. Soft tissues: Unremarkable. IMPRESSION: No evidence of acute infarct. Electronically signed by: Perla Luna On 12/09/2019 20:10:54 PM
[2019-12-09] MEDS ORDERED: ONDA4TAB6 PO (20:22)
[2019-12-09] MEDS ORDERED: ONDANSETRON 4 MG ORAL DISINTEGRATING TAB PO ONE (20:30)
[2019-12-09 20:37] VITALS: BP 137/63
--- NOTE | 2019-12-28 18:18 | ECGEPIP ---
[facility] - ED Test Date: 2019-12-09 Pat Name: PRASHANT RINCON Department: Room: - Gender: Female Process Stripper: ganesh : 1950 Requested By: Jennie Burks Order Number: [id number] Reading MD: Jennie Burks Measurements Intervals [place] Rate: 58 P: 35 ND: 146 QRS: 43 QRSD: 95 T: 19 QT: 425 QTc: 421 Interpretive Statements SINUS BRADYCARDIA BORDERLINE ECG NO PRIOR-DOWNTIME SEE SCANNED DOWNTIME REPORT
== END 2019-12-09 20:41 | disposition home or self-care (01) ==
LOC: EDBD 10:55 → M ED 10:55
DX: R07.89 Other chest pain (principal); R42 Dizziness and giddiness; E11.9 Type 2 diabetes mellitus without complications; I10 Essential (primary) hypertension; J44.9 Chronic obstructive pulmonary disease, unspecified; I48.91 Unspecified atrial fibrillation; E78.9 Disorder of lipoprotein metabolism, unspecified; G43.909 Migraine, unspecified, not intractable, without status migrainosus; Z79.899 Other long term (current) drug therapy; Z79.84 Long term (current) use of oral hypoglycemic drugs; Z79.82 Long term (current) use of aspirin; Z88.8 Allergy status to other drugs, medicaments and biological substances; J30.1 Allergic rhinitis due to pollen; Z87.891 Personal history of nicotine dependence
CPT/HCPCS: 36415; 70450; 70551; 71045; 72125; 80048; 80076; 82550; 82553; 83690; 84484; 85025; 93005; 93041; 94760; 99285; Q0162

== ENCOUNTER → 2019-12-12 | Outpatient (CLI) | payer MEDICARE ==
[2019-12-12 14:04] LABS: CALCIUM LEVEL 9.3 MG/DL (8.8-10.2); CREATININE FOR GFR 1.04 MG/DL (0.55-1.30); GLOMERULAR FILTRATION RATE 56.1 (>45); POTASSIUM SERUM 3.6 MEQ/L (3.5-5.1)
== END ==
LOC: M LAB 13:01
PROVIDERS: ATTEND Nurse Practitioner
DX: K43.2 Incisional hernia without obstruction or gangrene (principal)

== ENCOUNTER → 2020-01-28 | Outpatient (CLI) | payer MEDICARE ==
[2020-01-28 11:52] LABS: BLOOD UREA NITROGEN 22 MG/DL (7-18); CREATININE FOR GFR 0.94 MG/DL (0.55-1.30); GLOMERULAR FILTRATION RATE > 60.0 (>45)
== END ==
LOC: M LAB 10:18
PROVIDERS: ATTEND Otolaryngology
DX: H81.02 Meniere's disease, left ear (principal); H90.3 Sensorineural hearing loss, bilateral

== ENCOUNTER → 2020-01-30 | Outpatient (CLI) | payer MEDICARE ==
[~2020-01-30] MED LIST changes: +PROHANCE 279.3MG/ML 15ML VIAL As Ordered ONE; +PROHANCE 279.3MG/ML 5ML VIAL As Ordered ONE
--- NOTE | 2020-01-30 17:12 | REPVR ---
PROCEDURE INFORMATION: Exam: MR Head Without and With Contrast Exam date and time: 01/30/2020 4:57 PM Age: 69 years old Clinical indication: Dizziness; bilateral sensorineural healing loss TECHNIQUE: Imaging protocol: MR of the head without and with intravenous contrast. Contrast material: PROHANCE; Contrast volume: 15 ml; Contrast route: INTRAVENOUS (IV); COMPARISON: MRI-Brain without Contrast 12/09/2019 6:08 PM FINDINGS: Brain: Minimal nonspecific T2/FLAIR hyperintensities of the periventricular and deep subcortical white matter and homero, most likely secondary to chronic small vessel ischemic change. No intracranial hemorrhage or extra-axial fluid collection. No evidence of mass effect or midline shift. No restricted diffusion to suggest acute infarct. No abnormal intracranial enhancement. Cerebral ventricles: Normal. No ventriculomegaly. Bones/joints: Unremarkable. Paranasal sinuses: Normal as visualized. No acute sinusitis. Mastoid air cells: No mastoid effusion. Orbits: Unremarkable. Soft tissues: Unremarkable. IMPRESSION: 1. No acute intracranial findings. 2. Chronic findings, as above. Electronically signed by: Deshawn Nuñez On 01/30/2020 17:12:52 PM
== END ==
LOC: M RAD 15:17
PROVIDERS: ATTEND Otolaryngology
DX: H90.3 Sensorineural hearing loss, bilateral (principal)
CPT/HCPCS: 70553; A9576

== ENCOUNTER → 2020-03-13 | Outpatient (CLI) | payer MEDICARE ==
[~2020-03-13] MED LIST changes: +ELIQ5TAB PO; +METO1TAB32 PO; -PROHANCE 279.3MG/ML 15ML VIAL As Ordered ONE; -PROHANCE 279.3MG/ML 5ML VIAL As Ordered ONE
== END ==
LOC: M LABSMTC 07:44
PROVIDERS: ATTEND Anesthesiology
DX: Z01.812 Encounter for preprocedural laboratory examination (principal); Z20.828 Contact with and (suspected) exposure to other viral communicable diseases

== ENCOUNTER 2020-03-18 08:14 | Day surgery (SDC) | payer MEDICARE ==
[~2020-03-18] VITALS: Ht 157.5 cm; Wt 96.6 kg
[~2020-03-18 08:14] MED LIST changes: +NS 1,000 ML IV ONE
[2020-03-18] MEDS ORDERED: propofoL 200 MG/20 ML VIAL As Ordered ONE ×2 (09:10→09:46)
[2020-03-18] MEDS ORDERED: LIDOCAINE 2% 100MG/5ML SDV (FOR ANES.) As Ordered ONE (09:10)
--- NOTE | 2020-03-18 09:58 | ROOR ---
Patient Name: Sherie Lord Procedure Date: 03/18/2020 9:35 AM Date of : 1950 Age: 69 Room: [facility] Gender: Female Note Status: Finalized Procedure: Colonoscopy Indications: Screening for colorectal malignant neoplasm Providers: Sukhjinder Gonsales Jr, MD Referring MD: CARLEE HICKS JR, MD Requesting Provider: Medicines: Propofol per Anesthesia Complications: No immediate complications. Procedure: Pre-Anesthesia Assessment: - Prior to the procedure, a History and Physical was performed, and patient medications and allergies were reviewed. The patient is competent. The risks and benefits of the procedure and the sedation options and risks were discussed with the patient. All questions were answered and informed consent was obtained. Patient identification and proposed procedure were verified by the physician and the nurse in the pre-procedure area and in the procedure room. Mental Status Examination: alert and oriented. Airway Examination: normal oropharyngeal airway and neck mobility. Respiratory Examination: clear to auscultation. CV Examination: normal. ASA Grade Assessment: II - A patient with mild systemic disease. After reviewing the risks and benefits, the patient was deemed in satisfactory condition to undergo the procedure. The anesthesia plan was to use moderate sedation / analgesia (conscious sedation). Immediately prior to administration of medications, the patient was re-assessed for adequacy to receive sedatives. The heart rate, respiratory rate, oxygen saturations, blood pressure, adequacy of pulmonary ventilation, and response to care were monitored throughout the procedure. The physical status of the patient was re-assessed after the procedure. The Colonoscope was introduced through the anus and advanced to the cecum, identified by appendiceal orifice and ileocecal valve. The colonoscopy was performed without difficulty. The patient tolerated the procedure well. The quality of the bowel preparation was adequate. Findings: The rectum, descending colon, ascending colon, cecum, appendiceal orifice and ileocecal valve appeared normal. A few small-mouthed diverticula were found in the sigmoid colon. Two semi-sessile polyps were found in the recto-sigmoid colon and transverse colon. The polyps were small in size. These polyps were removed with a hot snare. Resection and retrieval were complete. Impression: - The rectum, descending colon, ascending colon, cecum, appendiceal orifice and ileocecal valve are normal. - Diverticulosis in the sigmoid colon. - Two small polyps at the recto-sigmoid colon and in the transverse colon, removed with a hot snare. Resected and retrieved. Recommendation: - Discharge patient to home (ambulatory). - Repeat colonoscopy in 5 years for surveillance. Procedure Code(s): --- Professional --- 20095, Colonoscopy, flexible; with removal of tumor(s), polyp(s), or other lesion(s) by snare technique Diagnosis Code(s): --- Professional --- Z12.11, Encounter for screening for malignant neoplasm of colon K63.5, Polyp of colon K57.30, Diverticulosis of large intestine without perforation or abscess without bleeding CPT copyright 2019 [employer]. All rights reserved. The codes documented in this report are preliminary and upon gate keeper review may be revised to meet current compliance requirements. Sukhjinder Gonsales MD Sukhjinder Gonsales Jr, MD 03/18/2020 9:58:57 AM Electronically signed by Sukhjinder Gonsales Jr, MD Number of Addenda: 0 Note Initiated On: 03/18/2020 9:35 AM Estimated Blood Loss: Estimated blood loss: none.
[2020-03-18 10:15] VITALS: BP 179/76
== END 2020-03-18 10:32 | disposition home or self-care (01) ==
LOC: M OPP 08:14
PROVIDERS: ATTEND Surgery
DX: Z12.11 Encounter for screening for malignant neoplasm of colon (principal); K57.30 Diverticulosis of large intestine without perforation or abscess without bleeding; D12.6 Benign neoplasm of colon, unspecified; K64.8 Other hemorrhoids; I48.91 Unspecified atrial fibrillation; I50.9 Heart failure, unspecified; E11.9 Type 2 diabetes mellitus without complications; F17.210 Nicotine dependence, cigarettes, uncomplicated; Z79.84 Long term (current) use of oral hypoglycemic drugs; Z79.899 Other long term (current) drug therapy; Z88.8 Allergy status to other drugs, medicaments and biological substances

== ENCOUNTER → 2020-06-17 | Outpatient (REF) | payer MEDICARE ==
[~2020-06-17] MED LIST changes: -NS 1,000 ML IV ONE
[2020-06-19 12:11] LABS: ANTINUCLEAR ANTIBODIES DIRECT Negative (Negative)
== END ==
LOC: M LAB REF 16:11
PROVIDERS: ATTEND Physician Assistant Medical
DX: M79.10 Myalgia, unspecified site (principal); M79.606 Pain in leg, unspecified

== ENCOUNTER → 2020-08-13 | Outpatient (CLI) | payer MEDICARE ==
[2020-08-13 11:19] LABS: BLOOD UREA NITROGEN 27 MG/DL (7-18); CALCIUM LEVEL 9.8 MG/DL (8.8-10.2); CARBON DIOXIDE LEVEL 23 MEQ/L (21-32); CHLORIDE LEVEL 106 MEQ/L (98-107); CREATININE FOR GFR 0.79 MG/DL (0.55-1.30); GLOMERULAR FILTRATION RATE > 60.0 (>45); GLUCOSE, FASTING 122 MG/DL (70-100); POTASSIUM SERUM 4.3 MEQ/L (3.5-5.1); SODIUM LEVEL 138 MEQ/L (136-145)
== END ==
LOC: M LAB 10:06
PROVIDERS: ATTEND Surgery
DX: R10.9 Unspecified abdominal pain (principal)

== ENCOUNTER → 2020-08-18 | Outpatient (CLI) | payer MEDICARE ==
[~2020-08-18] MED LIST changes: +GASTROGRAFIN SOLUTION 30ML (Q9963) As Ordered ONE; +ISOVUE-370 76% 100ML VIAL As Ordered ONE
--- NOTE | 2020-08-18 14:50 | REP ---
INDICATION: INCISIONAL HERNIA WITHOUT OBSTRUCTION OR GANGRENE. COMPARISON: Comparison CT study September 25, 2017.. TECHNIQUE: Helical scanning is acquired and 3 mm axial images re-formatted. Coronal and sagittal MPR images are generated. The CT contrast enhancement dose is 100 mL of intravenous Isovue 370. Oral contrast was also administered. FINDINGS: Preliminary digital urology teacher radiograph shows clips in right upper quadrant and a unremarkable bowel gas pattern. On axial CT images, the lung bases are clear. There is moderate diffuse fatty infiltration of the liver. The liver is felt to be enlarged with a craniocaudal span in the midclavicular line of 21.7 cm. This is unchanged. No focal liver mass lesion is seen. There are clips in the gallbladder fossa post cholecystectomy. No abnormality is noted in the pancreas. Normal adrenal glands are seen. The spleen is normal in size. There are 1 or 2 granulomatous calcifications in the spleen. Kidneys are morphologically intact and show symmetrical contrast enhancement. There is a small cortical cyst at the upper pole posteriorly on the left. No retroperitoneal mass or adenopathy is observed. Normal appendix is seen in the right lower quadrant. Patient is status post large ventral hernia repair. There right rectus abdominus muscle is severely atrophic. There is a large broad bulge in the right lateral and anterolateral abdominal wall. No focal hernia is seen. Small and large bowel loops are unremarkable in the abdomen and pelvis. No obstructive lesion is seen. The abdominal wall changes are stable when compared with the prior study from September 25, 2017. The uterus is surgically absent. IMPRESSION: 1. Hepatomegaly with fatty infiltration of the liver unchanged. 2. Post cholecystectomy and hysterectomy. 3. Status post extensive ventral hernia repair right anterolateral abdominal wall unchanged. Severe atrophy of the right rectus abdominus muscle. No focal hernia is seen. <Electronically signed by Nicolas Dwyer > 08/18/20 1544
== END ==
LOC: M RAD 12:38
PROVIDERS: ATTEND Surgery
DX: K43.2 Incisional hernia without obstruction or gangrene (principal); K76.0 Fatty (change of) liver, not elsewhere classified; R16.0 Hepatomegaly, not elsewhere classified
CPT/HCPCS: 74177; Q9963; Q9967

== ENCOUNTER → 2020-09-06 | Outpatient (CLI) | payer MEDICARE ==
[~2020-09-06] MED LIST changes: -GASTROGRAFIN SOLUTION 30ML (Q9963) As Ordered ONE; -ISOVUE-370 76% 100ML VIAL As Ordered ONE
--- NOTE | 2020-09-06 14:27 | REP ---
INDICATION: NICOTINE DEPENDENCE. COMPARISON: Comparison chest CT studies are reviewed from August 20, 2015, January 22, 2018, and June 06, 2019.. TECHNIQUE: Dose reduction was performed utilizing CARE dose with automated adjustment of the kV and MAS according to patient size; iterative reconstruction, automated exposure control, as well as adaptive dose shielding. Helical scanning is acquired and 3 mm axial images re-formatted at lung windows. FINDINGS: Preliminary digital speedometer inspector radiograph is unremarkable. There are clips in right upper quadrant of the abdomen. The axial CT images demonstrate numerous granulomatous calcifications scattered throughout the lung white bilaterally unchanged. There are granulomatous lymph node calcifications in the right hilar region. There is a 8 mm ground-glass opacity in the right upper lobe on today's CT study image number 31 of 98 series 201. This does not appear to have been present previously. It could be inflammatory or neoplastic. No other new pulmonary nodule is appreciated. No other noncalcified nodule is seen. No endobronchial disease is seen. Study is otherwise unremarkable. IMPRESSION: Ground-glass opacity right upper lobe 8 mm in diameter. New finding. Lung RADS category 2. Repeat CT study suggested in 6-12 months. <Electronically signed by Nicolas Dwyer > 09/06/20 [id number]
== END ==
LOC: M RAD 13:06
PROVIDERS: ATTEND Internal Medicine Pulmonary Disease
DX: Z12.2 Encounter for screening for malignant neoplasm of respiratory organs (principal); F17.210 Nicotine dependence, cigarettes, uncomplicated

== ENCOUNTER → 2020-11-22 | Outpatient (CLI) | payer MEDICARE ==
[~2020-11-22] MED LIST changes: +LOSA100T45 PO; -LOSA100T50 PO; +OMEP40CA4 PO; -OMEP40CA97 PO
== END ==
LOC: M PLAIMG 12:17
PROVIDERS: ATTEND Internal Medicine Pulmonary Disease
DX: R91.1 Solitary pulmonary nodule (principal)

== ENCOUNTER → 2021-02-01 | Outpatient (CLI) | payer MEDICARE ==
[~2021-02-01] MED LIST changes: -LOSA100T45 PO; +LOSA100T50 PO
--- NOTE | 2021-02-01 13:12 | REP ---
INDICATION: Assess stenosis TECHNIQUE: Carotid ultrasonography was performed bilaterally FINDINGS: Right: CCA systolic: 117.7 centimeters/second CCA diastolic: 25.1 centimeters/second ICA systolic: 191.3 centimeters/second ICA diastolic: 38.0 centimeters/second ICA CCA ratio: 1.63 Left: CCA systolic: 96.8 centimeters/second CCA diastolic: 28.4 centimeters/second ICA systolic: 117.6 centimeters/second ICA diastolic: 28.5 centimeters/second ICA CCA ratio: 1.21 Vertebral artery: Right: Antegrade flow left: Antegrade flow Echogenic material is seen along the carotid arterial brown some of which casts and acoustic shadow IMPRESSION: According to the SRU criteria there is a 50-69% stenosis of the right internal carotid artery. There is less than 50% stenosis in the left internal carotid artery. This is secondary to both calcified and noncalcified atheromatous plaque formation. <Electronically signed by Jan Gonzalez > 02/01/21 [id number]
== END ==
LOC: M RAD 12:28
PROVIDERS: ATTEND Nurse Practitioner Family
DX: I65.23 Occlusion and stenosis of bilateral carotid arteries (principal)

== ENCOUNTER → 2021-05-23 | Outpatient (CLI) | payer MEDICARE ==
[~2021-05-23] MED LIST changes: +LOSA100T45 PO; -LOSA100T50 PO
== END ==
LOC: M WUC 11:08
PROVIDERS: ATTEND Physician Assistant Medical
DX: R93.7 Abnormal findings on diagnostic imaging of other parts of musculoskeletal system (principal); M54.50 Low back pain, unspecified

== ENCOUNTER → 2021-05-24 | Outpatient (CLI) | payer MEDICARE | LOC: M RAD 14:47 | PROVIDERS: ATTEND Nurse Practitioner Family | DX: I73.9 Peripheral vascular disease, unspecified (principal) ==

== ENCOUNTER → 2021-06-16 | Outpatient (CLI) | payer MEDICARE | LOC: M RAD 13:42 | PROVIDERS: ATTEND Internal Medicine Pulmonary Disease | DX: R91.1 Solitary pulmonary nodule (principal) ==

== ENCOUNTER → 2022-02-06 | Outpatient (CLI) | payer MEDICARE | LOC: M WHC 14:22 | PROVIDERS: ATTEND Physician Assistant Medical | DX: Z12.31 Encounter for screening mammogram for malignant neoplasm of breast (principal); Z85.3 Personal history of malignant neoplasm of breast; Z90.12 Acquired absence of left breast and nipple | CPT/HCPCS: 77065; G0279 ==

== ENCOUNTER 2022-03-03 07:23 | Emergency (ER) | payer MEDICARE ==
[2022-03-03 07:54] LABS: BASO # 0.1 10^3/uL (0.0-0.2); BASO % 0.6 % (0.0-1.0); EOS # 0.3 10^3/uL (0.0-0.5); EOS % 3.3 % (0.0-3.0); HEMATOCRIT 39.2 % (36.0-47.0); HEMOGLOBIN 11.7 g/dl (12.0-15.5); LYMPH # 2.1 10^3/uL (1.5-5.0); LYMPH % 24.5 % (24.0-44.0); MEAN CORPUSCULAR HEMOGLOBIN 23.1 pg (27.0-33.0); MEAN CORPUSCULAR HGB CONC 29.8 g/dl (32.0-36.5); MEAN CORPUSCULAR VOLUME 77.3 fl (80.0-96.0); MONO # 1.3 10^3/uL (0.0-0.8); MONO % 14.9 % (2.0-8.0); NEUTROPHILS # 4.9 10^3/uL (1.5-8.5); NEUTROPHILS % 55.9 % (36.0-66.0); PLATELET COUNT, AUTOMATED 258 10^3/uL (150-450); RED BLOOD COUNT 5.07 10^6/uL (4.00-5.40); WHITE BLOOD COUNT 8.7 10^3/uL (4.0-10.0)
[2022-03-03] MEDS ORDERED: ASPIRIN 81 MG CHEW TABLET PO ONE (07:55)
[2022-03-03 08:06] LABS: INR 0.91; PROTHROMBIN TIME 12.5 SECONDS (12.5-14.5)
[2022-03-03 08:07] LABS: PARTIAL THROMBOPLASTIN TIME 24.6 SECONDS (24.8-34.2)
[2022-03-03] MEDS ORDERED: ALBUTEROL SULFATE 2.5 MG/0.5 ML INH NEB SOLN INH ONE (08:15)
[2022-03-03] MEDS ORDERED: methylPREDNISolone 125MG 2ML VIAL IV ONE (08:15)
[2022-03-03] MEDS ORDERED: IPRATROPIUM 0.5MG/ALBUTEROL 2.5MG INH SOL UD 3ML (DUONEB) NEB ONE (08:15)
[2022-03-03] MEDS ORDERED: ISOVUE-370 76% 100ML VIAL As Ordered ONE (08:22)
[2022-03-03 08:32] LABS: RSV AMPLIFICATION NEGATIVE (NEGATIVE)
[2022-03-03 08:52] LABS: ALBUMIN 3.5 G/DL (3.2-5.2); ALT/SGPT 28 U/L (7.0-40); BILIRUBIN,DIRECT < 0.1 MG/DL (<0.4); BILIRUBIN,TOTAL 0.2 MG/DL (0.3-1.2); BLOOD UREA NITROGEN 18 MG/DL (9-23); CALCIUM LEVEL 9.4 MG/DL (8.3-10.6); CARBON DIOXIDE LEVEL 26 MMOL/L (20-31); CHLORIDE LEVEL 104 MMOL/L (98-107); CK-MB VALUE MASS 2.3 NG/ML (<3.6); CPK CREATINE PHOSPHOKINASE 241 U/L (34-145); CREATININE FOR GFR 0.72 MG/DL (0.55-1.30); FREE T4 0.95 NG/DL (0.89-1.76); GLOMERULAR FILTRATION RATE > 60.0 (>39); GLUCOSE, FASTING 147 MG/DL (74-106); LIPASE 82 U/L (12-53); MB/CK RELATIVE INDEX 0.95 (< OR =4); POTASSIUM SERUM 4.2 MMOL/L (3.5-5.1); SODIUM LEVEL 138 MMOL/L (136-145); THYROID STIMULATING HORMONE 2.369 uIU/ML (0.55-4.78); TOTAL PROTEIN 6.7 G/DL (5.7-8.2)
[2022-03-03 10:01] LABS: CK-MB VALUE MASS 1.8 NG/ML (<3.6); MB/CK RELATIVE INDEX 0.79 (< OR =4)
[2022-03-03] MEDS ORDERED: PRED20TA PO (11:24)
[2022-03-03] MEDS ORDERED: DOXY-444 PO (11:25)
[2022-03-03] MEDS ORDERED: DOXYCYCLINE HYCLATE 100MG TABLET PO ONE (11:30)
[2022-03-03 11:45] VITALS: BP 129/61
== END 2022-03-03 12:05 | disposition home or self-care (01) ==
LOC: M ED 07:23
DX: R07.9 Chest pain, unspecified (principal); J44.1 Chronic obstructive pulmonary disease with (acute) exacerbation; R91.8 Other nonspecific abnormal finding of lung field; J20.9 Acute bronchitis, unspecified; I11.0 Hypertensive heart disease with heart failure; I50.9 Heart failure, unspecified; I25.10 Atherosclerotic heart disease of native coronary artery without angina pectoris; E11.9 Type 2 diabetes mellitus without complications; E78.5 Hyperlipidemia, unspecified; E27.9 Disorder of adrenal gland, unspecified; G43.909 Migraine, unspecified, not intractable, without status migrainosus; F17.200 Nicotine dependence, unspecified, uncomplicated; Z90.49 Acquired absence of other specified parts of digestive tract; Z90.710 Acquired absence of both cervix and uterus; Z79.01 Long term (current) use of anticoagulants; Z79.84 Long term (current) use of oral hypoglycemic drugs; Z79.899 Other long term (current) drug therapy
CPT/HCPCS: 36600; 71045; 71275; 80047; 80048; 80076; 82550; 82553; 82803; 83690; 84439; 84443; 84484; 85025; 85610; 85730; 87631; 93005; 93041; 94640; 94760; 96374; 99285; J2930; Q9967

== ENCOUNTER → 2022-06-28 | Outpatient (CLI) | payer MEDICARE ==
[~2022-06-28] MED LIST changes: +DOXY-444 PO; +PRED20TA PO
[2022-06-28 15:11] LABS: BLOOD UREA NITROGEN 17 MG/DL (9-23); CREATININE FOR GFR 0.67 MG/DL (0.55-1.30); GLOMERULAR FILTRATION RATE > 60.0 (>39)
== END ==
LOC: M LAB 13:56
PROVIDERS: ATTEND Psychiatry & Neurology Neurology
DX: I10 Essential (primary) hypertension (principal)

== ENCOUNTER → 2022-08-02 | Outpatient (REF) | payer MEDICARE ==
[2022-08-02 18:44] LABS: FERRITIN 24.2 NG/ML (7.3-270.7)
== END ==
LOC: M LAB REF 16:30
PROVIDERS: ATTEND Physician Assistant Medical
DX: F50.89 Other specified eating disorder (principal)

== ENCOUNTER → 2022-10-24 | Outpatient (CLI) | payer MEDICARE ==
[~2022-10-24] MED LIST changes: -LOSA100T45 PO; +LOSA100T46 PO
== END ==
LOC: M RAD 13:04
PROVIDERS: ATTEND Nurse Practitioner Family
DX: I65.23 Occlusion and stenosis of bilateral carotid arteries (principal)

== ENCOUNTER → 2023-02-09 | Outpatient (CLI) | payer MEDICARE ==
[~2023-02-09] MED LIST changes: +MECL-209 PO; -MECL1TAB31 PO
== END ==
LOC: M WHC 14:29
PROVIDERS: ATTEND Physician Assistant Medical
DX: Z12.31 Encounter for screening mammogram for malignant neoplasm of breast (principal); Z90.12 Acquired absence of left breast and nipple; R92.1 Mammographic calcification found on diagnostic imaging of breast; Z85.3 Personal history of malignant neoplasm of breast
CPT/HCPCS: 77067; G0279

== ENCOUNTER → 2023-05-15 | Outpatient (CLI) | payer OTHER, MEDICAID | LOC: M RAD 13:59 | PROVIDERS: ATTEND Internal Medicine Pulmonary Disease | DX: Z87.891 Personal history of nicotine dependence (principal) ==

== ENCOUNTER → 2023-05-18 | Outpatient (REF) | payer OTHER, MEDICAID ==
[2023-05-18 19:01] LABS: PERCENT SATURATION 12.7 % (13.2-45.0)
[2023-05-18 19:05] LABS: FERRITIN 33.2 NG/ML (7.3-270.7)
== END ==
LOC: M LAB REF 17:17
PROVIDERS: ATTEND Physician Assistant Medical
DX: F50.89 Other specified eating disorder (principal)

== ENCOUNTER → 2023-07-03 | Outpatient (REF) | payer OTHER, MEDICAID ==
[2023-07-03 19:07] LABS: FOLATE > 24.0 NG/ML (>5.4)
[2023-07-03 19:08] LABS: VITAMIN B12 LEVEL 626 PG/ML (211-911)
== END ==
LOC: M LAB REF 17:55
PROVIDERS: ATTEND Nurse Practitioner Family
DX: R41.3 Other amnesia (principal)

== ENCOUNTER → 2023-10-23 | Outpatient (REF) | payer OTHER, MEDICAID ==
[~2023-10-23] MED LIST changes: +DOXY-440 PO; -DOXY-444 PO; +ONDA-282 PO; -ONDA4TAB6 PO
[2023-10-23 17:44] LABS: PERCENT SATURATION 14.5 % (13.2-45.0)
[2023-10-23 17:48] LABS: FERRITIN 41.6 NG/ML (7.3-270.7)
== END ==
LOC: M LAB REF 16:29
PROVIDERS: ATTEND Physician Assistant Medical
DX: R42 Dizziness and giddiness (principal); F50.89 Other specified eating disorder; G47.62 Sleep related leg cramps

== ENCOUNTER → 2023-11-23 | Outpatient (CLI) | payer OTHER, MEDICAID | LOC: M RAD 15:11 | PROVIDERS: ATTEND Internal Medicine Pulmonary Disease | DX: R91.8 Other nonspecific abnormal finding of lung field (principal) ==

== ENCOUNTER → 2024-02-19 | Outpatient (CLI) | payer OTHER, MEDICAID | LOC: M WHC 13:50 | PROVIDERS: ATTEND Physician Assistant Medical | DX: Z12.31 Encounter for screening mammogram for malignant neoplasm of breast (principal); R92.323 Mammographic fibroglandular density, bilateral breasts; I65.22 Occlusion and stenosis of left carotid artery | CPT/HCPCS: 36415; 77067; 80048; G0279 ==

== ENCOUNTER → 2024-02-19 | Outpatient (CLI) | payer OTHER, MEDICAID ==
[2024-02-19 16:05] LABS: BLOOD UREA NITROGEN 22 MG/DL (9-23); CALCIUM LEVEL 9.7 MG/DL (8.3-10.6); CARBON DIOXIDE LEVEL 28 MMOL/L (20-31); CHLORIDE LEVEL 102 MMOL/L (98-107); CREATININE FOR GFR 0.62 MG/DL (0.55-1.30); GLOMERULAR FILTRATION RATE > 60.0 (>39); GLUCOSE, FASTING 110 MG/DL (74-106); POTASSIUM SERUM 5.2 MMOL/L (3.5-5.1); SODIUM LEVEL 139 MMOL/L (136-145)
== END ==
LOC: M LAB 15:17
PROVIDERS: ATTEND Surgery Vascular Surgery
DX: I65.22 Occlusion and stenosis of left carotid artery (principal)

== ENCOUNTER → 2024-02-27 | Outpatient (CLI) | payer OTHER, MEDICAID ==
[2024-02-27 15:57] LABS: BLOOD UREA NITROGEN 20 MG/DL (9-23); CALCIUM LEVEL 9.6 MG/DL (8.3-10.6); CARBON DIOXIDE LEVEL 27 MMOL/L (20-31); CHLORIDE LEVEL 106 MMOL/L (98-107); CREATININE FOR GFR 0.69 MG/DL (0.55-1.30); GLOMERULAR FILTRATION RATE > 60.0 (>39); GLUCOSE, FASTING 117 MG/DL (74-106); POTASSIUM SERUM 4.1 MMOL/L (3.5-5.1); SODIUM LEVEL 140 MMOL/L (136-145)
== END ==
LOC: M LAB 14:24
PROVIDERS: ATTEND Surgery Vascular Surgery
DX: I65.22 Occlusion and stenosis of left carotid artery (principal)

== ENCOUNTER → 2024-03-04 | Outpatient (CLI) | payer OTHER, MEDICAID ==
[~2024-03-04] MED LIST changes: +ISOVUE-370 76% 100ML VIAL As Ordered ONE
== END ==
LOC: M RAD 14:15
PROVIDERS: ATTEND Physician Assistant
DX: I65.22 Occlusion and stenosis of left carotid artery (principal)
CPT/HCPCS: 70496; 70498; Q9967

== ENCOUNTER → 2024-04-24 | Outpatient (CLI) | payer MEDICARE, MEDICAID ==
[~2024-04-24] MED LIST changes: -ISOVUE-370 76% 100ML VIAL As Ordered ONE
== END ==
LOC: M PLALAB 15:02
PROVIDERS: ATTEND Psychiatry & Neurology Neurology
DX: R51.9 Headache, unspecified (principal)

== ENCOUNTER → 2024-08-11 | Outpatient (CLI) | payer MEDICARE, MEDICAID ==
[~2024-08-11] MED LIST changes: +E-Z-GAS II EFFERVESCENT PACKET (SODIUM BICARB./CITRIC ACID/SIMETHICONE) As Ordered ONE; +E-Z-HD 98% w/w 340GM SUSP BTL As Ordered ONE; +E-Z-PAQUE 96% w/w SUSP 176GM BTL As Ordered ONE
== END ==
LOC: M RAD 09:43
PROVIDERS: ATTEND Physician Assistant
DX: R13.10 Dysphagia, unspecified (principal)

== ENCOUNTER 2024-08-28 11:00 | Day surgery (SDC) | payer MEDICARE, MEDICAID ==
[~2024-08-28] VITALS: Ht 160 cm; Wt 95.9 kg
[~2024-08-28 11:00] MED LIST changes: +ACET-910 PO; +ALBU2.5V10 INH; +CALC500C16 PO; -E-Z-GAS II EFFERVESCENT PACKET (SODIUM BICARB./CITRIC ACID/SIMETHICONE) As Ordered ONE; -E-Z-HD 98% w/w 340GM SUSP BTL As Ordered ONE; -E-Z-PAQUE 96% w/w SUSP 176GM BTL As Ordered ONE; +FARX1TAB3 PO; +LIDOCAINE 2% 100MG/5ML SDV (FOR ANES.) As Ordered ONE; +MAGN200T PO; +MECL-86 PO; +NITR0.4S14 SL; +PROA1AER2 IN; +THERTAB52 PO; +propofoL 200 MG/20 ML VIAL As Ordered ONE
[2024-08-28 13:20] VITALS: TEMP 97
[2024-08-28 13:45] VITALS: BP 132/62; O2SAT 95
== END 2024-08-28 13:53 | disposition home or self-care (01) ==
LOC: M OPP 11:00
PROVIDERS: ATTEND Surgery
DX: K64.2 Third degree hemorrhoids (principal); K57.30 Diverticulosis of large intestine without perforation or abscess without bleeding; Z86.0100 Personal history of colon polyps, unspecified; K31.89 Other diseases of stomach and duodenum; R13.10 Dysphagia, unspecified; G47.30 Sleep apnea, unspecified; I48.91 Unspecified atrial fibrillation; Z88.8 Allergy status to other drugs, medicaments and biological substances; Z91.048 Other nonmedicinal substance allergy status; Z79.82 Long term (current) use of aspirin; Z79.01 Long term (current) use of anticoagulants; Z79.84 Long term (current) use of oral hypoglycemic drugs; Z79.899 Other long term (current) drug therapy; G40.309 Generalized idiopathic epilepsy and epileptic syndromes, not intractable, without status epilepticus; J44.9 Chronic obstructive pulmonary disease, unspecified; Z87.891 Personal history of nicotine dependence

== ENCOUNTER → 2024-11-27 | Outpatient (CLI) | payer MEDICARE, MEDICAID ==
[~2024-11-27] MED LIST changes: -LIDOCAINE 2% 100MG/5ML SDV (FOR ANES.) As Ordered ONE; -propofoL 200 MG/20 ML VIAL As Ordered ONE
[2024-11-27 16:32] LABS: CREATININE FOR GFR 0.79 MG/DL (0.55-1.30); GLOMERULAR FILTRATION RATE 78.9 (>39)
== END ==
LOC: M LAB 15:30
PROVIDERS: ATTEND Psychiatry & Neurology Neurology
DX: I10 Essential (primary) hypertension (principal)

== ENCOUNTER 2024-12-03 07:06 | Emergency (ER) | payer MEDICARE, MEDICAID ==
[~2024-12-03] VITALS: Ht 157.5 cm; Wt 97.7 kg
[2024-12-03 07:14] VITALS: TEMP 97.4
[2024-12-03] MEDS ORDERED: DONE10TA90 (07:23)
[2024-12-03] MEDS ORDERED: FAMO40TA3 (07:23)
[2024-12-03] MEDS ORDERED: SEMA7TAB2 (07:23)
[2024-12-03 08:31] VITALS: BP 147/64; O2SAT 96
== END 2024-12-03 09:02 | disposition home or self-care (01) ==
LOC: M ED 07:06
DX: S92.155A Nondisplaced avulsion fracture (chip fracture) of left talus, initial encounter for closed fracture (principal); Y92.410 Unspecified street and highway as the place of occurrence of the external cause; Y93.9 Activity, unspecified; Y99.9 Unspecified external cause status; I48.91 Unspecified atrial fibrillation; K21.9 Gastro-esophageal reflux disease without esophagitis; Z87.891 Personal history of nicotine dependence; Z88.8 Allergy status to other drugs, medicaments and biological substances; Z91.09 Other allergy status, other than to drugs and biological substances; Z79.1 Long term (current) use of non-steroidal anti-inflammatories (NSAID); Z79.51 Long term (current) use of inhaled steroids; Z79.01 Long term (current) use of anticoagulants; Z79.84 Long term (current) use of oral hypoglycemic drugs; Z79.899 Other long term (current) drug therapy

== ENCOUNTER → 2024-12-24 | Outpatient (CLI) | payer MEDICARE, MEDICAID ==
[~2024-12-24] MED LIST changes: +DONE10TA90; -EZET10TA21 PO; +EZET10TA57 PO; +FAMO40TA3; +SEMA7TAB2
== END ==
LOC: M SOG 07:00
PROVIDERS: ATTEND Orthopaedic Surgery
DX: S82.65XD Nondisplaced fracture of lateral malleolus of left fibula, subsequent encounter for closed fracture with routine healing (principal); M25.572 Pain in left ankle and joints of left foot

== ENCOUNTER → 2025-01-14 | Outpatient (CLI) | payer MEDICARE, MEDICAID | LOC: M RAD 14:13 | PROVIDERS: ATTEND Internal Medicine Pulmonary Disease | DX: Z87.891 Personal history of nicotine dependence (principal) ==

== ENCOUNTER → 2025-02-26 | Outpatient (CLI) | payer MEDICARE, MEDICAID | LOC: M WUC 13:08 | PROVIDERS: ATTEND Physician Assistant Medical | DX: M54.50 Low back pain, unspecified (principal); M25.511 Pain in right shoulder; M47.816 Spondylosis without myelopathy or radiculopathy, lumbar region ==